=== PATIENT | female | born 1970 | race Caucasian/White ===

== ENCOUNTER 2018-12-26 07:55 | Emergency (ER) | payer OTHER ==
[~2018-12-26] VITALS: Ht 157.5 cm; Wt 83.4 kg
[2018-12-26 08:22] LABS: BILIRUBIN, URINE MANUAL NEGATIVE (NEGATIVE); GLUCOSE, URINE (UA) MANUAL NEGATIVE (NEGATIVE); KETONE, URINE MANUAL NEGATIVE (NEGATIVE); UROBILINOGEN, URINE MANUAL NORMAL (NORMAL)
[2018-12-26] MEDS ORDERED: NS 1,000 ML IV ONE (08:30)
[2018-12-26] MEDS ORDERED: ACETAMINOPHEN 500 MG TAB PO ONE (08:30)
[2018-12-26] MEDS ORDERED: KETOROLAC 30 MG/ML VIAL (J1885) IV ONE (08:30)
[2018-12-26 08:41] LABS: BASO % 0.3 % (0.0-1.0); EOS % 0.3 % (0.0-3.0); HEMATOCRIT 43.8 % (36.0-47.0); HEMOGLOBIN 14.5 g/dl (12.0-15.5); LYMPH # 1.8 10^3/uL (1.5-4.5); LYMPH % 19.8 % (24.0-44.0); MEAN CORPUSCULAR HEMOGLOBIN 28.9 pg (27.0-33.0); MEAN CORPUSCULAR HGB CONC 33.1 g/dl (32.0-36.5); MEAN CORPUSCULAR VOLUME 87.3 fl (80.0-96.0); MONO # 0.3 10^3/uL (0.0-0.8); NEUTROPHILS # 6.9 10^3/uL (1.8-7.7); NEUTROPHILS % 76.3 % (36.0-66.0); PLATELET COUNT, AUTOMATED 261 10^3/uL (150-450); RED BLOOD COUNT 5.02 10^6/uL (4.00-5.40)
[2018-12-26 09:26] LABS: ALBUMIN 4.5 GM/DL (3.2-5.2); BILIRUBIN,TOTAL 1.2 MG/DL (0.2-1.0); CALCIUM LEVEL 9.3 MG/DL (8.5-10.1); CREATININE FOR GFR 1.11 MG/DL (0.55-1.30); GLOMERULAR FILTRATION RATE 55.4 (>51); POTASSIUM SERUM 3.9 MEQ/L (3.5-5.1); TOTAL PROTEIN 7.6 GM/DL (6.4-8.2)
[2018-12-26] MEDS ORDERED: FLOM0.4C39 PO (09:30)
[2018-12-26] MEDS ORDERED: KETO10TAB PO (09:30)
[2018-12-26 09:36] VITALS: BP 139/88
--- NOTE | 2018-12-26 09:44 | REP ---
CT ABDOMEN AND PELVIS WITHOUT CONTRAST: CT abdomen and pelvis performed without oral or IV contrast. Sagittal and coronal reconstruction images are performed. Visualized lung bases are clear. The liver is grossly unremarkable. Patient has had a prior cholecystectomy. The spleen, adrenals, pancreas are unremarkable. There is mild right hydroureteronephrosis caused by a 2 mm calculus in the distal end of the right ureter. There is an intrarenal calculus in the upper aspect of the left kidney measuring 6 mm in diameter. There is no left hydroureteronephrosis. There is no abdominal aortic aneurysm. There is no adenopathy. There is no free air or free fluid. There is no bowel wall thickening. There is no evidence of appendicitis. No pelvic mass is seen. IMPRESSION: There is a 2 mm calculus in the distal end of the right ureter causing mild right hydroureteronephrosis. There is an intrarenal calculus in the upper left kidney 6 mm diameter without left hydronephrosis. Electronically Signed by Jefferson Franco MD 12/26/2018 11:16 A
== END 2018-12-26 09:40 | disposition home or self-care (01) ==
LOC: M ED 07:55
DX: N20.1 Calculus of ureter (principal); N20.0 Calculus of kidney
CPT/HCPCS: 74176; 80053; 85025; 96361; 96374; 99284; J1885

== ENCOUNTER → 2018-12-31 | Outpatient (REF) | payer OTHER ==
[~2018-12-31] MED LIST: FLOM0.4C39 PO; KETO10TAB PO
[2018-12-31 19:37] LABS: APPEARANCE, URINE CLEAR (CLEAR); BACTERIA, URINE AUTO 1+ (NEGATIVE); BILIRUBIN, URINE AUTO NEGATIVE (NEGATIVE); BLOOD, URINE BLOOD NEGATIVE (NEGATIVE); COLOR, URINE STRAW (YELLOW); GLUCOSE, URINE (UA) AUTO NEGATIVE (NEGATIVE); KETONE, URINE AUTO NEGATIVE (NEGATIVE); LEUKOCYTE ESTERASE, URINE AUTO NEGATIVE (NEGATIVE); NITRITE, URINE AUTO NEGATIVE (NEGATIVE); PROTEIN, URINE AUTO NEGATIVE (NEGATIVE); RBC, URINE AUTO 0 /HPF (0-3); SPECIFIC GRAVITY URINE AUTO 1.004 (1.002-1.035); SQUAMOUS EPITHELIAL CELL UR AU 0 /HPF (0-6); UROBILINOGEN, URINE AUTO 0.2 mg/dL (0.0-2.0); WBC, URINE AUTO 1 /HPF (0-3)
== END ==
LOC: M SMT 17:10
PROVIDERS: ATTEND Nurse Practitioner Family
DX: N20.0 Calculus of kidney (principal)

== ENCOUNTER → 2018-12-31 | Outpatient (CLI) | payer OTHER ==
--- NOTE | 2018-12-31 15:04 | REP ---
Clinical: Kidney stone. Technique: Single supine view of the abdomen and pelvis. Comparison: CT dated 12/26/2018. Findings: 6 mm left intrarenal calculus is consistent with findings on prior CT. The 2 mm obstructing calculus in the right UVJ cannot be confirmed by current radiographic evaluation. Evidence of prior cholecystectomy. Bowel gas pattern is nonspecific. No organomegaly. Skeletal structures are intact and chronic dextroconvex scoliosis is again noted. Impression: 6 mm nonobstructing left intrarenal calculus. The previously identified 2 mm calculus in the right UVJ cannot be confirmed. Electronically Signed by Alexander Jenkins MD 12/31/2018 02:54 P
== END ==
LOC: M SMT 14:42
PROVIDERS: ATTEND Nurse Practitioner Family
DX: N20.0 Calculus of kidney (principal)

== ENCOUNTER → 2019-01-07 | Outpatient (CLI) | payer OTHER ==
--- NOTE | 2019-01-08 10:58 | REP ---
Clinical: Nephrolithiasis. Technique: Franco scale and color evaluation using curved array transducer. Findings: The bilateral kidneys are normal in contour, size, echogenicity, and reniform shape without hydronephrosis, perinephric stranding, cystic or mass lesion. Right kidney measures 10.5 x 4.3 x 4.4 cm without obvious calculus. Left kidney measures 11.0 x 5.6 x 4.4 cm and includes 6 mm nonobstructing calculus. Bladder is normal in appearance and demonstrates bilateral ureteral jets. Prevoid bladder measures 10.5 x 8.8 x 6.1 cm (368 ml). Postvoid bladder measures 3.3 x 2.9 x 1.6 cm (10 ml). Postvoid residual equals 2%. Impression: 1. 6 mm nonobstructing left renal calculus. 2. No hydronephrosis. Electronically Signed by Alexander Jenkins MD 01/08/2019 10:50 A
== END ==
LOC: M RAD 14:44
PROVIDERS: ATTEND Nurse Practitioner Family
DX: N20.0 Calculus of kidney (principal)

== ENCOUNTER 2019-01-24 06:28 | Day surgery (SDC) | payer OTHER ==
[~2019-01-24] VITALS: Ht 157.5 cm; Wt 81.6 kg
[~2019-01-24 06:28] MED LIST changes: +LR 1,000 ML IV ONE
[2019-01-24] MEDS ORDERED: PROPOFOL 200 MG/20 ML VIAL As Ordered ONE (07:08)
[2019-01-24] MEDS ORDERED: MIDAZOLAM INJ 2 MG/2 ML VIAL (J2250) As Ordered ONE (07:09)
[2019-01-24] MEDS ORDERED: fentaNYL 100 MCG/2 ML INJECTION (J3010) As Ordered ONE (07:09)
[2019-01-24] MEDS ORDERED: PERCOCET 5MG/325MG TAB As Ordered ONE (09:16)
[2019-01-24] MEDS ORDERED: PERCOCET 5MG/325MG TAB PO PRN ×2 (09:30)
--- NOTE | 2019-01-24 09:54 | REP ---
KUB, ONE VIEW: HISTORY: Kidney stone. COMPARISON: 12/31/2018. A small amount of air is present in the intestine. There are no air fluid levels or dilated loops of intestine. There is no pneumoperitoneum. Calcification is present overlying the left kidney consistent with nephrolithiasis. Surgical clips are present in the right upper quadrant. IMPRESSION: 1. Nonspecific bowel gas pattern. 2. Left nephrolithiasis. Electronically Signed by Lenny Miller MD 01/24/2019 09:57 A
[2019-01-24 09:55] VITALS: BP 173/77
--- NOTE | 2019-01-25 11:00 | RO ---
DATE OF PROCEDURE: 01/24/2019 PREPROCEDURE DIAGNOSIS: Left kidney stone. POSTPROCEDURE DIAGNOSIS: Left kidney stone. PROCEDURE: Left extracorporeal shockwave lithotripsy. SURGEON: Dr. Connor Peck WATCH CASER: None ANESTHESIA: Monitored anesthesia care (MAC). OPERATIVE INDICATIONS: This is a 48-year-old female who was found to have an approximately 6 mm left kidney stone. She is brought to the operating room today for the above listed procedure. DESCRIPTION OF PROCEDURE: The patient was brought to the operating room and MAC anesthesia was administered. Prophylactic antibiotics were infused. She was then placed in the supine position in preparation for left-sided extracorporeal shockwave lithotripsy. Fluoroscopy was utilized to monitor stone position and fragmentation throughout the procedure. Shock waves were then delivered to the left-sided kidney stone ungated. There were no arrhythmias. The stone did appear to fragment well. After 2500 shocks, the procedure was concluded. The patient was then awakened from anesthesia and transported to the recovery room in stable condition. ESTIMATED BLOOD LOSS: 0 mL. COMPLICATIONS: None. SPECIMENS: None. PLAN: The patient will followup in the clinic in a few weeks with imaging prior to assess for residual stone burden. CHOCO
== END 2019-01-24 10:12 | disposition home or self-care (01) ==
LOC: M SDC 06:28
PROVIDERS: ATTEND Urology
DX: N20.0 Calculus of kidney (principal); Z78.0 Asymptomatic menopausal state; Z87.891 Personal history of nicotine dependence
CPT/HCPCS: 50590; 74018; J0690; J2250; J3010

== ENCOUNTER → 2019-02-14 | Outpatient (CLI) | payer OTHER ==
[~2019-02-14] MED LIST changes: -LR 1,000 ML IV ONE
--- NOTE | 2019-02-15 15:49 | REP ---
Clinical: Nephrolithiasis. Technique: Two supine views of the abdomen and pelvis. Findings: Evaluation is limited by technique and overlying bowel gas pattern. No obvious intrarenal calculi are identified. No bowel obstruction. Evidence of prior cholecystectomy noted. Skeletal structures demonstrate chronic age-related degenerative changes. Impression: Limited examination. No obvious renal calculi identified. Electronically Signed by Alexander Jenkins MD 02/15/2019 03:40 P
[2019-02-19 00:06] LABS: Ca Ox Monohydrate 87 % (.)
== END ==
LOC: M SMT 09:01
PROVIDERS: ATTEND Nurse Practitioner Family
DX: N20.0 Calculus of kidney (principal)

== ENCOUNTER → 2021-08-20 | Outpatient (CLI) | payer OTHER ==
--- NOTE | 2021-08-20 12:15 | REPMRS ---
Patient History The patient states she had a clinical breast exam in 07/2021. Patient is postmenopausal. No known family history of cancer. No Hormone Replacement Therapy Patient states no breast complaints today. Patient has signed MRS History Sheet. Patient states moderna vaccine 11/2020, and 01/20. Digital Woman Screen Mammo: August 20, 2021 - Exam #: [id number] Bilateral CC and MLO view(s) were taken. Technologist: Celine Payton, Technologist FINDINGS: There are scattered fibroglandular densities. Screening. Digital screening (2D) mammography was performed bilaterally in the CC and MLO projections. Additionally, breast tomosynthesis (3D mammography) was performed bilaterally in the CC and MLO projections. Todays exam was compared to the prior exam/exams. By history, the patient has no complaints of a palpable breast abnormality or other significant breast complaints. The Volpara volumetric breast density category is B, there are scattered areas of fibroglandular densities. The breasts are unchanged in size and shape. There are no dayana-soft tissue densities or spiculated masses. There is no internal architectural distortion. There are no suspicious dayana-calcific clusters. Skin thickening or nipple retraction is not present. IMPRESSION: BI-RADS Category 2- Benign Findings. There is no evidence of malignant alteration of the breasts. Followup examination recommended in one year. The lifetime Tyrer-Cuzick score is 7.4% This mammogram was [facility] FDA approved computer aided detection system for mammography. Negative x-ray reports should not delay surgical consultation if a dominant or clinically suspicious mass is present. Not all breast cancers can be identified by mammography. Therefore, we recommend that you continue to perform regular breast self-examination and physical examination and then promptly contact your physician of any concerns or changes. Adenosis and dense breasts may obscure an underlying neoplasm. No significant changes when compared with prior studies. Assessment: BI-RADS/ACR category 2 mammogram. Benign Findings. Recommendation Routine screening mammogram of both breasts in 1 year. Electronically Signed By: Adam Love MD 08/20/21 [id number]
== END ==
LOC: M WHC 10:25
PROVIDERS: ATTEND Registered Nurse
DX: Z12.31 Encounter for screening mammogram for malignant neoplasm of breast (principal)

== ENCOUNTER → 2022-07-18 | Outpatient (REF) | payer OTHER | LOC: M LAB REF 16:24 | PROVIDERS: ATTEND Registered Nurse | DX: Z11.8 Encounter for screening for other infectious and parasitic diseases (principal); W57.XXXA Bitten or stung by nonvenomous insect and other nonvenomous arthropods, initial encounter; Y93.89 Activity, other specified; Y99.9 Unspecified external cause status; Y92.9 Unspecified place or not applicable ==

== ENCOUNTER → 2023-07-26 | Outpatient (CLI) | payer BC | LOC: M WHC 10:07 | PROVIDERS: ATTEND Physician Assistant Medical | DX: Z12.31 Encounter for screening mammogram for malignant neoplasm of breast (principal) ==

== ENCOUNTER → 2024-08-12 | Outpatient (CLI) | payer BC | LOC: M WHC 13:51 | PROVIDERS: ATTEND Physician Assistant Medical | DX: Z12.31 Encounter for screening mammogram for malignant neoplasm of breast (principal); R92.313 Mammographic fatty tissue density, bilateral breasts ==

== ENCOUNTER 2024-11-06 06:31 | Day surgery (SDC) | payer BC ==
[~2024-11-06] VITALS: Ht 157.5 cm; Wt 79.2 kg
[~2024-11-06 06:31] MED LIST changes: +ATOR1TAB21 PO
[2024-11-06] MEDS ORDERED: LIDOCAINE 2% 100MG/5ML SDV (FOR ANES.) As Ordered ONE (07:39)
[2024-11-06] MEDS ORDERED: propofoL 200 MG/20 ML VIAL As Ordered ONE (07:39)
[2024-11-06 08:00] VITALS: TEMP 97.6
[2024-11-06 08:17] VITALS: BP 183/81; O2SAT 100
== END 2024-11-06 08:23 | disposition home or self-care (01) ==
LOC: M OPP 06:31
PROVIDERS: ATTEND Surgery
DX: Z12.11 Encounter for screening for malignant neoplasm of colon (principal); K64.4 Residual hemorrhoidal skin tags; Z79.899 Other long term (current) drug therapy; Z87.891 Personal history of nicotine dependence

== ENCOUNTER → 2025-08-13 | Outpatient (CLI) | payer BC ==
[~2025-08-13] MED LIST changes: -FLOM0.4C39 PO; +TAMS-18 PO
== END ==
LOC: M WHC 07:29
PROVIDERS: ATTEND Physician Assistant Medical
DX: Z12.31 Encounter for screening mammogram for malignant neoplasm of breast (principal); R92.323 Mammographic fibroglandular density, bilateral breasts